=== PATIENT | female | born 1980 | race American Indian/Alaskan Native ===

== ENCOUNTER 2018-03-20 09:35 | Emergency (ER) | payer MEDICAID ==
[2018-03-20 09:52] VITALS: BP 111/53; PULSE 88; RESP 16; TEMP 98.1; O2SAT 98
--- NOTE | 2018-03-20 09:57 | C.PDOC ---
History Of Present Illness 37 y/o female, otherwise well, presents to the ED complaining of a persistent rash throughout the entire body but mainly to the left side of her neck. Patient states that while staying with a friend, they witnessed bed bugs at the residence. Reports that since then, she moved out and got rid of all affected items. Patient complains that itchy rash has been persistent for the past 2 weeks. Otherwise she denies any fever, chills, nausea, or vomiting. Time Seen by Provider: 03/20/18 09:53 Chief Complaint (Nursing): Abnormal Skin Integrity History Per: Patient History/Exam Limitations: no limitations Onset/Duration Of Symptoms: Days Current Symptoms Are (Timing): Still Present Quality Of Symptoms: Itching Past Medical History Reviewed: Historical Data, Nursing Documentation, Vital Signs Vital Signs: Last Vital Signs Temp 98.1 F 03/20/18 09:49 Pulse 88 03/20/18 09:49 Resp 16 03/20/18 09:49 BP 111/53 L 03/20/18 09:49 Pulse Ox 98 03/20/18 09:49 Family History: States: No Known Family Hx - Social History Hx Alcohol Use: No Hx Substance Use: No - Immunization History Hx Tetanus Toxoid Vaccination: No Hx Influenza Vaccination: No Hx Pneumococcal Vaccination: No Review Of Systems Except As Marked, All Systems Reviewed And Found Negative. Constitutional: Negative for: Fever, Chills Gastrointestinal: Negative for: Nausea, Vomiting Skin: Positive for: Lesions (throughout body, especially to left neck) Neurological: Negative for: Weakness, Numbness Physical Exam - Physical Exam Appears: Non-toxic, No Acute Distress Skin: Warm, Dry, Other (Multiple small raised lesions, some excoriated, scattered throughout. No active bleeding, increased warmth, or indication of infection) Head: Atraumatic, Normacephalic Eye(s): bilateral: Normal Inspection Nose: Normal Oral Mucosa: Moist Neurological/Psych: Oriented x3 ED Course And Treatment O2 Sat by Pulse Oximetry: 98 (RA) Pulse Ox Interpretation: Normal Medical Decision Making Medical Decision Making: Impression: Insect Bites Plan: Patient counseled regarding diagnosis and follow up. Recommended applying hydrocortisone cream and antibiotic ointment, alternating BID. Disposition Counseled Patient/Family Regarding: Diagnosis, Need For Followup, Rx Given - Disposition Referrals: [facility] [Outside] Disposition: HOME/ ROUTINE Disposition Time: 10:04 Condition: STABLE Additional Instructions: Alternate the medications, twice a day each. Follow up in clinic. Prescriptions: Hydrocortisone 0.5% 1 applic TP BID #1 tube Mupirocin 2% Ointment [Bactroban Ointment] 1 appl TP BID #1 tube Instructions: Insect Bites and Stings (DC) Forms: General Discharge Instructions, [facility] (E[place]an), Work Excuse - POA Present On Arrival: None - Clinical Impression Clinical Impression: Insect bite - Scribe Statement The provider has reviewed the documentation as recorded by the Scribe (Radha Henriquez) Provider Attestation: All medical record entries made by the Scribe were at my direction and personally dictated by me. I have reviewed the chart and agree that the record accurately reflects my personal performance of the history, physical exam, medical decision making, and the department course for this patient. I have also personally directed, reviewed, and agree with the discharge instructions and disposition.
== END 2018-03-20 10:10 | disposition home or self-care (01) ==
LOC: C.ER 09:35
DX: S10.86XA Insect bite of other specified part of neck, initial encounter (principal); W57.XXXA Bitten or stung by nonvenomous insect and other nonvenomous arthropods, initial encounter; Y92.9 Unspecified place or not applicable